=== PATIENT | male | born 1990 | race Two or more races ===

== ENCOUNTER 2018-12-29 11:53 | Emergency (ER) | payer MEDICAID ==
[~2018-12-29] VITALS: Ht 180.3 cm; Wt 75.0 kg
[~2018-12-29 11:53] MED LIST: PANT-47 PO
[2018-12-29] MEDS ORDERED: PENI500T2 PO (13:20)
[2018-12-29 13:26] VITALS: BP 121/64
== END 2018-12-29 19:01 | disposition home or self-care (01) ==
LOC: ER 11:53
DX: K02.9 Dental caries, unspecified (principal); F15.90 Other stimulant use, unspecified, uncomplicated; Z59.0 Homelessness; Z79.899 Other long term (current) drug therapy
CPT/HCPCS: 99283

== ENCOUNTER 2022-03-20 13:30 | Emergency (ER) | payer SELFPAY ==
[~2022-03-20] VITALS: Ht 180.3 cm; Wt 80.3 kg
[2022-03-20 14:09] VITALS: BP 111/76
[2022-03-20] MEDS ORDERED: naproxen 500mg tablet PO ONE (15:00)
[2022-03-20] MEDS ORDERED: PENI500T2 PO (15:14)
[2022-03-20] MEDS ORDERED: NAPR-56 PO (15:14)
== END 2022-03-20 15:29 | disposition home or self-care (01) ==
LOC: ER 13:31
DX: K08.109 Complete loss of teeth, unspecified cause, unspecified class (principal); F15.90 Other stimulant use, unspecified, uncomplicated; Z72.89 Other problems related to lifestyle; Z59.00 Homelessness unspecified; Z79.899 Other long term (current) drug therapy; Z79.2 Long term (current) use of antibiotics
CPT/HCPCS: 99283

== ENCOUNTER 2024-04-10 20:19 | Emergency (ER) | payer SELFPAY ==
[~2024-04-10] VITALS: Ht 177.8 cm; Wt 79.5 kg
[2024-04-10] MEDS ORDERED: HYDR-3686 PO (20:28)
[2024-04-10] MEDS: hydrOXYzine 25 MG tablet PO ONE (20:29)
[2024-04-10 20:51] VITALS: BP 133/96; PULSE 146; RESP 20; TEMP 98.7; O2SAT 96
== END 2024-04-10 20:56 | disposition home or self-care (01) ==
LOC: ER 20:19
DX: F14.10 Cocaine abuse, uncomplicated (principal); F15.10 Other stimulant abuse, uncomplicated; Z79.899 Other long term (current) drug therapy
CPT/HCPCS: 99283; Q0177